=== PATIENT | male | born 1970 | race Two or more races ===

== ENCOUNTER 2025-02-21 10:55 | Emergency (ER) | payer SELFPAY ==
[~2025-02-21] VITALS: Ht 182.9 cm; Wt 110.0 kg
--- NOTE | 2025-02-21 11:52 | ED.PDOC ---
Eye-HPI HPI Comments A 54-year-old male presents to the emergency department with a chief complaint of LT ear pain onset 2 months. Patient states he has been experiencing LT ear pain for the past 2 month, was seen at a different ED, diagnosed with otitis media, was prescribed Augmentin, was seen at urgent care and was prescribed Neomycin, finished prescription with no improvement of symptoms. No other symptoms or modifying factors present at this time. Denies fever, chills Denies headache, dizziness Denies nausea, vomiting, diarrhea Denies chest pain,shortness of breath Chief Complaint: Earache Time Seen by MD: 11:40 Reviewed Notes: Medications, Allergies Allergies: Coded Allergies: NO KNOWN ALLERGIES (Unverified , 02/21/25) Information Source: Patient Mode of Arrival: Ambulatory Timing: Months Duration: Since onset Prehospital treatment: Other (Augmentin and Neomycin) Quality: Pain Lids: Normal Cornea: Normal Pupils: Normal EOM: Normal Fundus: Normal Slit lamp exam: Normal Anterior chamber: Normal Mouth: Normal Nose: Normal Sinuses: Normal Oropharynx: Normal Onset: Spontaneous Throat Exposed to: None History of: None Associated signs and symptoms: Ear Pain (LT) Past Medical History PAST MEDICAL HISTORY: Denies Surgical History: Denies all surgeries Family History Family History: Reviewed,noncontributory to illness, No family hx of Cancer, No family hx of DM, No family hx of Heart anup, No family hx of HTN, No family hx ofKidney anup, No family hx of Liver anup, No family hx of Lung anup, No family hx of Stroke Social History Smoker: Non-Smoker Alcohol: Denies ETOH Use Drugs: Denies Drug Use Lives In: Home All Other Systems: Reviewed and Negative (as per hpi) Physical Exam General Appearance: Normal HEENT: Pharynx Normal, Other (bilateral cerumen impaction) Neck: Full Range of Motion, Non-Tender, Normal, Normal Inspection Respiratory: Chest Non-Tender, Lungs Clear, No Accessory Muscle Use, No Respiratory Distress, Normal Breath Sounds Cardiovascular: No Edema, No JVD, No Murmur, No Gallop, Normal Peripheral Pulses, Regular Rate/Rhythm Breast Exam: Deferred Gastrointestinal: No Organomegaly, Non Tender, No Pulsatile Mass, Normal Bowel Sounds, Soft Genitalia: Deferred Pelvic: Deferred Rectal: Deferred Extremities: No calf tenderness, Normal capillary refill, Normal inspection, Normal range of motion, Non-tender, No pedal edema Musculoskeletal : Apperance: Normal Neurologic: Alert, parts lister II-XII nml as Tested, No Motor Deficits, Normal Affect, Normal Mood, No Sensory Deficits Cerebellar Function: Normal Reflexes: Normal Skin: Dry, Normal Color, Warm Lymphatic: No Adenopathy Was a procedure done? Was a procedure done?: No EENT DIFF Eye: Other X-Ray, Labs, Meds, VS Vital Signs Date Time Temp Pulse Resp B/P (MAP) Pulse Ox O2 Delivery O2 Flow Rate FiO2 02/21/25 12:23 98 18 98 Room Air 02/21/25 12:23 98.7 89 18 148/69 (95) 97 98.7 02/21/25 10:56 98.7 91 15 139/93 98 98.7 X-Ray, Labs, Meds, VS Comment A 54-year-old male presents to the emergency department with a chief complaint of LT ear pain onset 2 months. Exam findings consistent with impacted cerumen Risks and benefits were discussed and patient verbalized understanding. Risks included but not limited to TM perforation, hearing loss, vertigo. Patient verbalized to the procedure. Ear wax was removed with ear lavage system and the patient tolerated the procedure well. On re-evaluation of the TM was intact and TM was visualized. On reevaluation, patient had symptomatic improvement. Patient is stable for discharge at this time. External notes reviewed. Test results and diagnostic imaging interpreted. All diagnostic findings, discharge care, education and instructions provided Follow-up with PCP in 2 to 3 days Patient verbalized understanding and agreed to treatment plan Vital signs stable, afebrile, no acute distress noted Patient ambulatory with strong steady gait Advised to return precautions for any new or worsening symptoms, return to ER immediately for re-evaluation Patient is aware that the purpose of this visit was for an acute medical emergency requiring emergent stabilization. Chronic conditions, including malignancies have not been ruled out. Patient is instructed to follow up with PCP as directed and discharge instructions for continued care and workup. If unable to arrange follow-up, patient is to return to the emergency department for reassessment. Patient (parent or legal guardian if applicable) was given verbal and written discharge instructions and acknowledges understanding. Additional MDM Review of External, Non-ED records: External records reviewed. Discussion with independent historian (EMS, family) history obtained from the patient/parents (if applicable) at bedside Chronic conditions affecting care: None Social determinants of health affecting care: None I considered escalation of care to admission for this patient, however given the reassuring workup, the patient is safe for outpatient management. Time of 1ST Reevaluation: 12:10 Reevaluation 1ST: Improved Patient Education/Counseling: Diagnosis, Treatment Family Education/Counseling: No Family Present SEPSIS Sepsis Screen Date sepsis recognized/suspect: Feb 21, 2025 Time Sepsis recognized/suspect: 1100 Recent Procedure: No On Antibiotic Therapy: No Respiratory Rate >20: No Heart Rate >90: No Temp<36 C (96.8 F) or >38.3 C: No SBP <90 or MAP <65 mmHG: No New Acute Mental Status Change: No Is the patient on CPAP, BIPAP,: No Vital Signs Date Time Temp Pulse Resp B/P (MAP) Pulse Ox O2 Delivery O2 Flow Rate FiO2 02/21/25 12:23 98 18 98 Room Air 02/21/25 12:23 98.7 89 18 148/69 (95) 97 98.7 02/21/25 10:56 98.7 91 15 139/93 98 98.7 Departure 1 Departure Time of Disposition: 11:51 Impression: Primary Impression: Bilateral impacted cerumen Disposition: 01 HOME / SELF CARE / HOMELESS Condition: Stable Discharged With: Self Critical Care Note Critical Care Time?: No Stability Stability form required: No Heart Score Heart Score: Heart Score Response (Comments) Value History N/A 0 EKG N/A 0 Age N/A 0 Risk Factors N/A 0 Troponin N/A 0 Total 0 I personally scribed for PATO GALINDO NP ([email or web address]) on 02/21/25 at 11:52. Electronically submitted by Ana Kaufman ([email or web address]). PATO GALINDO NP Feb 21, 2025 11:52
[2025-02-21 12:23] VITALS: BP 148/69; PULSE 98; RESP 18; TEMP 98.7; O2SAT 98
== END 2025-02-21 12:25 | disposition home or self-care (01) ==
LOC: ER 10:55
DX: H61.23 Impacted cerumen, bilateral (principal); Z88.1 Allergy status to other antibiotic agents; Z88.0 Allergy status to penicillin
CPT/HCPCS: 69209